=== PATIENT | female | born 1975 | race Hispanic/Latino ===

== ENCOUNTER 2019-08-29 05:54 | Emergency (ER) | payer BC, OTHER ==
[2019-08-29] MEDS ORDERED: LIDOCAINE 5% TOPICAL PATCH TP ONE (06:44)
[2019-08-29] MEDS ORDERED: ORPHENADRINE CITRATE 30 MG/ML ML ONE (06:44)
[2019-08-29] MEDS ORDERED: KETOROLAC TROMETHAMINE 30MG/ML ONE ×2 (06:45→14:18)
[2019-08-29] MEDS ORDERED: MAG HYDROX/AL HYDROX/SIMETH ES 30 ML SUSP UDCUP ONE (07:04)
[2019-08-29] MEDS ORDERED: LIDOCAINE HCL 2% VISCOUS 15 ML UDCUP ONE (07:04)
== END 2019-08-29 15:51 | disposition home or self-care (01) ==
LOC: EDH 05:54
DX: M54.6 Pain in thoracic spine (principal); R07.89 Other chest pain; Z88.1 Allergy status to other antibiotic agents; Z88.6 Allergy status to analgesic agent; Z90.49 Acquired absence of other specified parts of digestive tract
CPT/HCPCS: 36415; 71045; 76705; 80053; 82550; 83690; 84484 ×2; 85025; 85610; 85651; 85730; 86140; 93005; 96374; 96375; 99285; J1885 ×3; J2360; J7030

== ENCOUNTER 2020-10-07 06:58 | Observation (INO) | payer BC ==
[2020-10-03 11:25] LABS: BASOPHILS % (AUTO) 0.3 % (0.0-5.0); HEMATOCRIT 34.6 % (36-48); LYMPHOCYTES % (AUTO) 29.8 % (21.0-51.0); MEAN CORPUSCULAR HEMOGLOBIN 21.5 pg (27.0-33.0); MEAN CORPUSCULAR HGB CONC 29.5 g/dL (32.0-36.0); MEAN CORPUSCULAR VOLUME 72.8 fL (79-99); NEUTROPHILS % (AUTO) 59.6 % (40.0-77.0); PLATELET COUNT (AUTO) 451 K/uL (130-400); RED BLOOD CELL COUNT(AUTO) 4.75 MIL/uL (4.00-5.50); RED CELL DISTRIBUTION WIDTH 18.8 % (11.0-15.5); WHITE BLOOD COUNT (AUTO) 7.6 K/uL (4.8-10.8)
[2020-10-06 10:12] VITALS: BP 116/62
[2020-10-07] VITALS (24 sets, daily range): BP systolic 95–130; BP diastolic 62–86
[~2020-10-07] VITALS: Ht 154.9 cm; Wt 79.1 kg
[2020-10-07] MEDS: CEFAZOLIN SODIUM 1 GM VIAL IVP SCH ×2 (06:00→08:20)
[~2020-10-07 06:58] MED LIST: ASCO500T20 PO; CALDOLOR 800MG+NS 250ML 250 ML IV SCH; FERR-72 PO; LACTATED RINGERS 1000ML 1,000 ML IV SCH
[2020-10-07] MEDS ORDERED: SUCCINYLCHOLINE CHLORIDE 20 MG/ML 10 ML VIAL ONE (07:33)
[2020-10-07] MEDS ORDERED: LIDOCAINE PF 100MG/5ML (2%) SYRINGE 5ML ONE (07:33)
[2020-10-07] MEDS ORDERED: ROCURONIUM 10MG/1ML SYR 10 MG/ML ML ONE (07:35)
[2020-10-07] MEDS ORDERED: PROPOFOL 10 MG/ML 20ML VIAL IV ONE (07:35)
[2020-10-07] MEDS ORDERED: FENTANYL CITRATE PF 50 MCG/1 ML 2ML VIAL ONE (07:36)
[2020-10-07] MEDS ORDERED: MORPHINE PF 100MG/10ML AMP IV ONE (08:06)
[2020-10-07] MEDS ORDERED: MIDAZOLAM HCL 1 MG/ML 2ML VIAL ONE (08:09)
[2020-10-07 10:30] LABS: HEMATOCRIT 28.2 % (36-48)
[2020-10-07] MEDS ORDERED: ESTROGENS,CONJUGATED 0.625 MG/GM 42.5 GM VAG CRM VG ONE (10:51)
[2020-10-07] MEDS ORDERED: ONDANSETRON 4MG INJ ONE (11:14)
[2020-10-07] MEDS ORDERED: MEPERIDINE-PF 25 MG/ML SYG ONE ×2 (11:15→11:30)
[2020-10-07] MEDS ORDERED: SIMETHICONE 80 MG TAB.CHEW PO PRN (14:00)
[2020-10-07] MEDS ORDERED: IBUPROFEN 600 MG TABLET PO PRN (14:00)
[2020-10-07] MEDS ORDERED: BISACODYL 10 MG SUPP.RECT RC PRN (14:00)
[2020-10-07] MEDS ORDERED: PROMETHAZINE HCL 25 MG/ML 1ML AMPULE IM PRN (14:00)
[2020-10-07] MEDS ORDERED: ACETAMINOPHEN WITH CODEINE 1 TAB TAB PO PRN (14:00)
[2020-10-07] MEDS ORDERED: DOCUSATE SODIUM 100 MG CAP PO PRN (14:00)
[2020-10-07] MEDS: CALDOLOR 800MG+NS 250ML 250 ML IV SCH ×2 (14:13→21:52)
[2020-10-07] MEDS: MEPERIDINE-PF 75 MG/ML SYG IM PRN ×2 (14:22→18:38)
[2020-10-07] MEDS: PROMETHAZINE HCL 25 MG/ML 1ML AMPULE IM PRN (18:36)
[2020-10-07] MEDS: DEXTROSE 5 %-0.45 % NACL 1,000 ML IV SCH (18:38)
[2020-10-07] MEDS ORDERED: ONDANSETRON 4MG INJ IVP PRN (22:00)
[2020-10-08 03:08] VITALS: BP 91/52
[2020-10-08] MEDS: PROMETHAZINE HCL 25 MG/ML 1ML AMPULE IM PRN (03:31)
[2020-10-08] MEDS: MEPERIDINE-PF 75 MG/ML SYG IM PRN (03:32)
[2020-10-08] MEDS: DEXTROSE 5 %-0.45 % NACL 1,000 ML IV SCH (03:36)
[2020-10-08] MEDS: CALDOLOR 800MG+NS 250ML 250 ML IV SCH (05:58)
[2020-10-08 07:25] VITALS: BP 105/59
[2020-10-08] MEDS ORDERED: SIMETHICONE 80 MG TAB.CHEW ONE (08:51)
[2020-10-08] MEDS ORDERED: SIMETHICONE 80 MG TAB.CHEW PO PRN (09:00)
[2020-10-08 10:58] VITALS: BP 102/54
[2020-10-08 16:15] VITALS: BP 138/83
[2020-10-08] MEDS: SIMETHICONE 80 MG TAB.CHEW PO PRN ×2 (16:26→18:33)
[2020-10-08] MEDS ORDERED: DOCUSATE SODIUM 100 MG CAP PO PRN (16:30)
[2020-10-08] MEDS ORDERED: IBUPROFEN 600 MG TABLET PO PRN (16:30)
[2020-10-08] MEDS ORDERED: BISACODYL 10 MG SUPP.RECT RC PRN (16:30)
[2020-10-08] MEDS ORDERED: ACETAMINOPHEN WITH CODEINE 1 TAB TAB PO PRN (16:30)
[2020-10-13] MEDS ORDERED: IBUP-2070 PO (06:45)
[2020-10-13] MEDS ORDERED: DOCU-116 PO (06:45)
== END 2020-10-08 19:10 | disposition home or self-care (01) ==
LOC: DAH 06:58 → WSH 06:59
PROVIDERS: ADMIT Obstetrics & Gynecology; ATTEND Obstetrics & Gynecology
DX: N92.1 Excessive and frequent menstruation with irregular cycle (principal); Z20.822 Contact with and (suspected) exposure to COVID-19; D25.9 Leiomyoma of uterus, unspecified; N39.3 Stress incontinence (female) (male); N81.11 Cystocele, midline; Z88.6 Allergy status to analgesic agent; Z90.49 Acquired absence of other specified parts of digestive tract; Z79.899 Other long term (current) drug therapy; Z98.890 Other specified postprocedural states
CPT/HCPCS: 36415 ×2; 57240; 58260; 84703; 85014; 85018; 85025; 86850; 86900; 86901; 86923; 87635; 96361 ×2; 96365; 96366 ×3; 96372 ×2; 96375; A4215; A4221; A4222; A4223; A4344 ×2; A4510; A4600; A4663; A6260; C1758; C9803; G0378 ×32; J0330; J0690; J1741 ×5; J2001; J2175 ×5; J2250; J2274; J2405 ×2; J2550 ×3; J2704; J3010; J7030; J7120 ×2

== ENCOUNTER → 2022-07-26 | Outpatient (CLI) | payer BC ==
[~2022-07-26] MED LIST changes: -CALDOLOR 800MG+NS 250ML 250 ML IV SCH; +DOCU-116 PO; +IBUP-2070 PO; -LACTATED RINGERS 1000ML 1,000 ML IV SCH
== END | disposition home or self-care (01) ==
LOC: RAH 13:07
PROVIDERS: ATTEND Obstetrics & Gynecology
DX: N60.01 Solitary cyst of right breast (principal); N60.02 Solitary cyst of left breast; N64.4 Mastodynia; Z80.3 Family history of malignant neoplasm of breast; Z87.898 Personal history of other specified conditions
CPT/HCPCS: 77066